=== PATIENT | male | born 1970 | race Caucasian/White ===

== ENCOUNTER → 2018-03-27 07:50 | Outpatient (CLI) | payer BC, SELFPAY ==
[2018-03-27 08:38] LABS: Hemoglobin A1C 9.1 % (0.0-7.0)
[2018-03-27 08:51] LABS: Chol/HDL Ratio 4.4 (1-3.5); Cholesterol 158 mg/dL (140-200); HDL Cholesterol 36 mg/dL (27-67); LDL Cholesterol 77 mg/dL (0-130); Triglycerides 223 mg/dL (30-200); VLDL Cholesterol 45 mg/dL (0-40)
== END ==
PROVIDERS: PCP Physician Assistant; Visit Provider Physician Assistant
DX: E11.9 Type 2 diabetes mellitus without complications (principal); E78.89 Other lipoprotein metabolism disorders
CPT/HCPCS: 36415; 80061; 83036

== ENCOUNTER → 2020-04-08 08:36 | Outpatient (CLI) | payer BC, SELFPAY ==
[2020-04-08 09:54] LABS: Chloride 105 mmol/L (98-107); Sodium 138 mmol/L (136-145)
[2020-04-08 09:55] LABS: Potassium 4.6 mmoL/L (3.5-5.1)
[2020-04-08 09:57] LABS: Alanine Aminotransferase 37 U/L (12-78); Albumin Level 4.6 g/dl (3.5-5.0); Alkaline Phosphatase 78 U/L (38-126); Anion Gap 13.6 mEq/L (5-15); Aspartate Amino Transferase 40 U/L (17-59); Bilirubin,Total 0.6 mg/dl (0.2-1.3); Blood Urea Nitrogen 18 mg/dl (9-20); Carbon Dioxide 24 mmol/L (22.0-30.0); Cholesterol 182 mg/dl (140-200); Estimated Glomerular Filt Rate 90 ml/min (>60); GFR (African American) 109 ML/MIN (>60); Triglycerides 198 mg/dl (30-150); VLDL Cholesterol 40 mg/dL (0-40)
[2020-04-08 09:58] LABS: Albumin/Globulin Ratio 1.8 (1.1-1.8); Calcium 9.2 mg/dl (8.4-10.2); Chol/HDL Ratio 4.4 (1-3.5); Globulin 2.6 g/dL (1.3-3.2); Glucose 129 mg/dl (74-100); HDL Cholesterol 41 mg/dl (40-60); Total Protein,Serum 7.2 g/dl (6.3-8.2)
[2020-04-08 10:09] LABS: Direct LDL Cholesterol 107.53 mg/dL (100-129)
[2020-04-08 10:17] LABS: Hemoglobin A1C 6.5 % (4.0-6.0)
== END ==
PROVIDERS: Visit Provider Family Medicine
DX: I10 Essential (primary) hypertension (principal); E11.9 Type 2 diabetes mellitus without complications
CPT/HCPCS: 36415; 80053; 80061; 83036

== ENCOUNTER → 2021-04-14 09:22 | Outpatient (CLI) | payer BC, SELFPAY ==
[2021-04-14 10:59] LABS: Alanine Aminotransferase 39 U/L (12-78); Albumin Level 4.6 g/dl (3.5-5.0); Albumin/Globulin Ratio 1.7 (1.1-1.8); Alkaline Phosphatase 75 U/L (38-126); Anion Gap 12.7 mEq/L (5-15); Aspartate Amino Transferase 33 U/L (17-59); Bilirubin,Total 0.7 mg/dl (0.2-1.3); Blood Urea Nitrogen 17 mg/dl (9-20); Calcium 9.1 mg/dl (8.4-10.2); Carbon Dioxide 22 mmol/L (22.0-30.0); Chloride 106 mmol/L (98-107); Chol/HDL Ratio 4.1 (1-3.5); Cholesterol 219 mg/dl (140-200); Estimated Glomerular Filt Rate 103 ml/min (>60); GFR (African American) 124 ML/MIN (>60); Globulin 2.7 g/dL (1.3-3.2); Glucose 146 mg/dl (74-100); HDL Cholesterol 54 mg/dl (40-60); Potassium 4.7 mmoL/L (3.5-5.1); Sodium 136 mmol/L (136-145); Total Protein,Serum 7.3 g/dl (6.3-8.2); Triglycerides 123 mg/dl (30-150); VLDL Cholesterol 25 mg/dL (0-40)
[2021-04-14 11:10] LABS: Direct LDL Cholesterol 133.29 mg/dL (100-129)
[2021-04-14 11:29] LABS: Prostate Specific Ag Screen 0.5 ng/ml (0.0-4.0)
[2021-04-14 12:31] LABS: Hemoglobin A1C 6.1 % (4.0-6.0)
== END ==
PROVIDERS: Visit Provider Family Medicine
DX: E11.9 Type 2 diabetes mellitus without complications (principal); I10 Essential (primary) hypertension; B35.6 Tinea cruris; Z12.5 Encounter for screening for malignant neoplasm of prostate; Z79.899 Other long term (current) drug therapy; Z79.84 Long term (current) use of oral hypoglycemic drugs
CPT/HCPCS: 36415; 80053; 80061; 83036; G0103

== ENCOUNTER → 2021-11-05 08:45 | Outpatient (CLI) | payer BC, SELFPAY ==
[2021-11-05 09:27] LABS: Hemoglobin A1C 6.8 % (4.0-6.0)
[2021-11-05 09:38] LABS: Chloride 107 mmol/L (98-107); Potassium 4.5 mmoL/L (3.5-5.1); Sodium 140 mmol/L (136-145)
[2021-11-05 09:40] LABS: Alanine Aminotransferase 45 U/L (12-78); Alkaline Phosphatase 71 U/L (38-126); Aspartate Amino Transferase 47 U/L (17-59); Bilirubin,Total 0.6 mg/dl (0.2-1.3); Blood Urea Nitrogen 13 mg/dl (9-20); Estimated Glomerular Filt Rate 102 ml/min (>60); GFR (African American) 124 ML/MIN (>60)
[2021-11-05 09:41] LABS: Albumin Level 4.5 g/dl (3.5-5.0); Albumin/Globulin Ratio 1.8 (1.1-1.8); Anion Gap 9.5 mEq/L (5-15); Calcium 9.4 mg/dl (8.4-10.2); Carbon Dioxide 28 mmol/L (22.0-30.0); Chol/HDL Ratio 4.1 (1-3.5); Cholesterol 190 mg/dl (140-200); Globulin 2.5 g/dL (1.3-3.2); Glucose 169 mg/dl (74-100); HDL Cholesterol 46 mg/dl (40-60); Triglycerides 173 mg/dl (30-150); VLDL Cholesterol 35 mg/dL (0-40)
[2021-11-05 09:52] LABS: Direct LDL Cholesterol 117.25 mg/dL (100-129)
== END ==
PROVIDERS: PCP Family Medicine; Visit Provider Family Medicine
DX: E11.9 Type 2 diabetes mellitus without complications (principal); E78.5 Hyperlipidemia, unspecified; I10 Essential (primary) hypertension; Z12.5 Encounter for screening for malignant neoplasm of prostate
CPT/HCPCS: 36415; 80053; 80061; 82043; 83036

== ENCOUNTER → 2022-11-23 08:23 | Outpatient (CLI) | payer BC, SELFPAY ==
[2022-11-23 09:35] LABS: Hemoglobin A1C 7.2 % (4.0-6.0)
[2022-11-23 09:40] LABS: Alanine Aminotransferase 35 U/L (12-78); Albumin Level 4.2 g/dl (3.5-5.0); Albumin/Globulin Ratio 1.7 (1.1-1.8); Alkaline Phosphatase 81 U/L (38-126); Anion Gap 13.5 mEq/L (5-15); Aspartate Amino Transferase 32 U/L (17-59); Bilirubin,Total 0.5 mg/dl (0.2-1.3); Blood Urea Nitrogen 15 mg/dl (9-20); Calcium 8.7 mg/dl (8.4-10.2); Carbon Dioxide 26 mmol/L (22.0-30.0); Chloride 104 mmol/L (98-107); Chol/HDL Ratio 4.4 (1-3.5); Cholesterol 190 mg/dl (140-200); Estimated Glomerular Filt Rate 89 ml/min (>60); GFR (African American) 108 ML/MIN (>60); Globulin 2.5 g/dL (1.3-3.2); Glucose 138 mg/dl (74-100); HDL Cholesterol 43 mg/dl (40-60); Potassium 4.5 mmoL/L (3.5-5.1); Sodium 139 mmol/L (136-145); Total Protein,Serum 6.7 g/dl (6.3-8.2); Triglycerides 164 mg/dl (30-150); VLDL Cholesterol 33 mg/dL (0-40)
[2022-11-23 09:50] LABS: Direct LDL Cholesterol 104.86 mg/dL (100-129)
== END ==
PROVIDERS: PCP Physician Assistant; Visit Provider Physician Assistant
DX: I10 Essential (primary) hypertension (principal); E11.9 Type 2 diabetes mellitus without complications; Z13.220 Encounter for screening for lipoid disorders
CPT/HCPCS: 36415; 80053; 80061; 83036

== ENCOUNTER → 2022-12-20 15:48 | Outpatient (CLI) | payer BC, SELFPAY ==
--- NOTE | 2022-12-20 | CA_ITS ---
FINAL REPORT TECHNIQUE: Ultrasound images of the deep venous system were obtained from the left groin to the calf veins. CLINICAL HISTORY: Patient has swollen, red left lower extremity. Patient denies trauma. States he has a history of cellulitis. HLD, HTN, DM, obesity. COMPARISON: None FINDINGS: The deep venous system is normally compressible. Normal flow is identified. IMPRESSION: No evidence of left lower extremity DVT. Reviewed, Interpreted and Dictated by Guido Graham III, MD Transcribed by Teena Montes De Oca Authenticated and [facility]
== END ==
LOC: RT 15:49
PROVIDERS: PCP Physician Assistant; Visit Provider Physician Assistant
DX: R60.0 Localized edema (principal)
CPT/HCPCS: 93971

== ENCOUNTER 2024-05-16 12:05 | Outpatient (CLI) | payer BC, SELFPAY ==
[2024-05-16 13:04] LABS: Albumin Level 4.2 g/dl (3.5-5.0); Chloride 107 mmol/L (98-107); Sodium 138 mmol/L (136-145)
[2024-05-16 13:05] LABS: Potassium 4.3 mmoL/L (3.5-5.1)
[2024-05-16 13:07] LABS: Alanine Aminotransferase 34 U/L (12-78); Albumin/Globulin Ratio 1.8 (1.1-1.8); Alkaline Phosphatase 84 U/L (38-126); Anion Gap 11.3 mEq/L (5-15); Aspartate Amino Transferase 32 U/L (17-59); Bilirubin,Total 0.9 mg/dl (0.2-1.3); Blood Urea Nitrogen 15 mg/dl (9-20); Carbon Dioxide 24 mmol/L (22.0-30.0); Cholesterol 183 mg/dl (140-200); Estimated Glomerular Filt Rate 89 ml/min (>60); GFR (African American) 107 ML/MIN (>60); Globulin 2.4 g/dL (1.3-3.2); Total Protein,Serum 6.6 g/dl (6.3-8.2); Triglycerides 125 mg/dl (30-150); VLDL Cholesterol 25 mg/dL (0-40)
[2024-05-16 13:08] LABS: Calcium 9.2 mg/dl (8.4-10.2); Chol/HDL Ratio 4.1 (1-3.5); Glucose 124 mg/dl (74-100); HDL Cholesterol 45 mg/dl (40-60)
[2024-05-16 13:19] LABS: Direct LDL Cholesterol 109.68 mg/dL (100-129)
[2024-05-16 13:37] LABS: Hemoglobin A1C 6.7 % (4.0-6.0)
== END 2024-05-16 23:59 | disposition home or self-care (01) ==
LOC: LAB 12:06
PROVIDERS: PCP Physician Assistant; Visit Provider Family Medicine
DX: E78.5 Hyperlipidemia, unspecified (principal); I10 Essential (primary) hypertension; E11.9 Type 2 diabetes mellitus without complications
CPT/HCPCS: 36415; 80053; 80061; 83036

== ENCOUNTER 2024-12-25 09:37 | Outpatient (CLI) | payer BC, SELFPAY ==
--- OUTSIDE RECORDS SUMMARY | 2023-08-15 11:15 | XMS_ITS ---
Author Organization [facility] Address [address] [facility] [address] [place], [place] [id number] Care Team Providers Care Straddle Bug Operator Name Role Phone Jay Jones Primary Care Provider KayodeRosalia lizarraga Rajendra [phone] Allergies Allergen (clinical drug ingredient) Drug/Non Drug Allergy documented on EMR Reaction Allergy Type Onset Date Status metformin metFORMIN GI upset Drug Allergy Active Penicillin rash Drug Allergy Active terbinafine Terbinafine rash Drug Allergy Act manish Results Component Value Reference Range Notes Glycohemoglobin A1c (in hous e) Reviewed date:08/18/2023 08:56:10 AM Interpretation:A1C 7.5% Performing Lab: Notes/Report: A1C 7.5% glycohemoglobin 7.5% 5 - 6.5 % P-Comprehensive Metabolic Pa tyron (CMP) Reviewed date:08/18/2023 08:56:10 AM Interpretation:Glu 261 Performing Lab: Notes/Report: Test performed by [facility] , [address], [place] [address] Sameer Mtz MD, Social Secretary CLIA: [id number] Sodium 138 135-145 mEq/L Potassium 4.1 3.5-5.3 mEq/L Chloride 104 97-108 mEq/L CO2 24 22-32 mEq/L Glucose 261 65-99 mg/dL BUN 16 6-20 mg/dL Creatinine 1.05 0.70-1.30 mg/dL Calcium 9.0 8.6-10.4 mg/dL eGFR by Creatinine 85 >59 mL/min/1.73m2 Protein 6.8 6.0-8.3 g/dL Albumin 4.5 3.5-5.3 g/dL Alkaline Phosphatase 92 40-129 IU/L ALT (SGPT) 29 <5-55 IU/L AST (SGOT) 17 <5-46 IU/L Bilirubin, Total 0.5 <0.2-1.2 mg/dL A/G Ratio 2.0 1.1-2.5 mg/dL P-Lipid Panel Reviewed date:08/18/2023 08:56:10 AM Interpretation:Trigs 304, Non-Hdl 150 Performing Lab: Notes/Report: Test performed by [facility] , [address], [place] [address] Sameer Mtz MD, Social Secretary CLIA: [id number] Cholesterol 194 <200 mg/dL Triglycerides 304 <150 mg/dL HDL Cholesterol 44 >39 mg/dL Cholesterol / HDL Ratio 4.41 0.00-4.99 Ratio Non-HDL Cholesterol 150 <130 mg/dL LDL Cholesterol (Calculation) 89 <130 mg/dL LDL Cholesterol Levels* Less than 100 mg/dL Optimal 100 to 129 mg/dL Near Optimal/ Above Optimal 130 to 159 mg/dL Borderline High 160 to 189 mg/dL High 190 mg/dL and above Very High * Categories as recommended by the 2004 ATPIII guidelines LDL/HDL Ratio 2.0 <3.3 Ratio LDL Cholesterol Patient History Test Date: 08/15/2023 LDL Results: 89 Units: mg/dL % Change: - P-PSA Reviewed date:08/18/2023 08:56:10 AM Interpretation: Performing Lab: Notes/Report: Test performed by [facility] [address] [place] [address] [address], [place] [address] Sameer Mtz MD, Social Secretary CLIA: [id number] PSA 0.39 <4.00 ng/mL Please note this is an ultrasensitive PSA assay with a lower limit of detection of 0.014 ng/mL. This test is performed by the Jose ECLIA methodology. Values obtained with different assay methods or kits cannot be directly compared. P-Microalbumin/Creatinine, R andom Urine Sample Reviewed date:08/18/2023 08:56:10 AM Interpretation: Performing Lab: Notes/Report: Test performed by [facility] [address] [place] [address] [address] [id number] Sameer Mtz MD, Social Secretary CLIA: [id number] Albumin/Creatinine Ratio, Urine 15 0-30 ug/m g Microalbumin, Urine, Random 1.3 Creatinine, Urine 84.7 REASON FOR VISIT CHECKUP Medications Medication SIG (Take, Route, Frequency, Duration) Notes Start Date End Date Status Trulicity 3 MG/0.5ML 3 mg Subcutaneous o nce a week 01/14/2023 Active Trulicity 0.75 MG/0.5ML 0.75 mg Subcutan eous once a week 08/15/2023 Active Dicyclomine HCl 20 MG 1 tab(s) orally 4 times a day prn; Duration: 30 days Active Indomethacin 25 MG 1 capsule with food or milk Orally Three times a day 01/07/2023 Not-Taking Cyclobenzaprine HCl 10 MG 1 tab(s) Orall y At Bed Time 01/07/2023 Not-Taking Clindamycin HCl 300 MG 1 capsule Orally every 8 hrs; Duration: 10 day(s) 12/20/2022 Not-Taking amLODIPine Besy-Benazepril HCl 5-20 MG 1 cap(s) orally once a day; Duration: 30 day(s) Active Albuterol Sulfate HFA 108 (90 Base) MCG/ACT 2 puff(s) inhaled every 6 hours, prn 06/06/2022 Active Farxiga 10 MG 1 tab(s) orally once a day; Duration: 30 day(s) Active Clotrimazole 1 % 1 application Externally Twice a day 08/15/2023 Active Vital Signs Blood pressure systolic 128 mm Hg 08/15/19 24 Blood pressure diastolic 82 mm Hg 024 Heart Rate 93 /min 08/15/2023 Height 73.50 in 08/15/2023 Weight 307 lbs 08/15/2023 BMI 39.95 kg/m2 08/15/2023 Encounters Encounter Location Date Provider Diagnosis [facility] [address] [facility] [address] [place] [id number] 08/15/2023 Rosalia Headleyelham Essential hypertensi on I10 ; Type 2 diabetes mellitus without complication, without long-term current use of insulin E11.9 ; Gastroesophageal reflux disease without esophagitis K21.9 ; Hyperlipidemia, unspecified hyperlipidemia type E78.5 ; Screening PSA (prostate specific antigen) Z12.5 and Tinea cruris B35.6 Assessments Encounter Date Diagnosis (ICD Code) Assessment Notes Treatment Notes Treatment Clinical Notes Section Notes 08/15/2023 Essential hypertension (ICD-10 - I10) 08/15/2023 Type 2 diabetes mellitus without complication, without long-term current use of insulin (ICD-10 - E11.9) Patient has been out of his trulicity because the coupons have been unavailable and it was going to cost $150. He will have to start back on the lower dose once the coupons are available. 08/15/2023 Gastroesophageal reflux disease without esophagitis (ICD-10 - K21.9) 08/15/2023 Hyperlipidemia, unspecified hyperlipidemia type (ICD-10 - E78.5) 08/15/2023 Screening PSA (prostate specific antigen) (ICD-10 - Z12.5) 08/15/2023 Tinea cruris (ICD-10 - B35.6) Patient normally takes pills but will try sending a cream this time that he can apply when needed. Plan Of Treatment Medication Medication Name Sig Start Date Stop Date Notes Trulicity 0.75 MG/0.5ML 0.75 mg Subcutan eous once a week 08/15/2023 amLODIPine Besy-Benazepril HCl 5-20 MG 1 cap(s) orally once a day; Duration: 30 day(s) Farxiga 10 MG 1 tab(s) orally once a day; Duration: 30 day(s) Clotrimazole 1 % 1 application Community Health Coordinator ally Twice a day 08/15/2023 Treatment Notes Assessment Notes Type 2 diabetes mellitus wit hout complication, without long-term current use of insulin Patient has been out of his trulicity because the coupons have been unavailable and it was going to cost $150. He will have to start back on the lower dose once the coupons are available. Tinea cruris Patient normally gilbert es pills but will try sending a cream this time that he can apply when needed. Next Appt Details Follow Up: via phone to repo rt test results, Reason: Progress Notes * Brandon ARSHAD JR B:1970 (54 yo M)Acc No.[id number]:08/15/2023 Progress Notes Patient: Michaela SHRUTHI MOSQUERA Brandon Gauthier Provider: ARNEL Hwang :1970 A ge:53 Y S ex:Male Date:08/15/2023 Address:[address] [place] [address], [id number] Pcp:Jay Jones Subjective: * Chief Complaints: * 1 . CHECKUP. * HPI: E ndocrinology: 53 year old male presents with c/o Maintenance p t is here for a f/u on regular maintenance on DM2. C ardiology: c/o Hyperlipidemia p t is here for a f/u, pt h as not fasted today. * ROS: D ERMATOLOGY: no R danuta. n o H kamlesh. G ASTROENTEROLOGY: no N ausea. n o V omiting. n o D iarrhea.? * Medical History: T ype 2 diabetes, Hypertension. * Surgical History: a ppendectomy , tonsillectomy , adenoidectomy , vasectomy , Gallbladder , Colonoscopy . * Hospitalization/Major Diagno stic Procedure: T yphoid Fever- [facility] 1979, Breathing Problems- [facility] 1973. * Family History: F ather: alive. M other: alive. 1 brother(s) - healthy. 2 daughter(s) - healthy. .? * Social History: C URRENT TOBACCO USE S moking Status: P atient does smoke, F ormer Smoker: Y es, Q uit smokin 014, S moking pack year history: 1 . C affeine: yes, frequency: 6-8 cups a day. Exercise: no. Marital Status: . Alcohol: Yes, occasional. Sexually active: yes. * Medications: T aking Albuterol Sulfate HFA 108 (90 Base) MCG/ACT Aerosol Solution 2 puff(s) inhaled every 6 hours, prn , Taking amLODIPine Besy-Benazepril HCl 5-20 MG Capsule 1 cap(s) orally once a day , Taking Dicyclomine HCl 20 MG Tablet 1 tab(s) orally 4 times a day prn , Taking Farxiga 10 MG Tablet 1 tab(s) orally once a day , Taking Trulicity 3 MG/0.5ML Solution Pen-injector 3 mg Subcutaneous once a week , Not-Taking Clindamycin HCl 300 MG Capsule 1 capsule Orally every 8 hrs , Not-Taking Cyclobenzaprine HCl 10 MG Tablet 1 tab(s) Orally At Bed Time , Not-Taking Indomethacin 25 MG Capsule 1 capsule with food or milk Orally Three times a day , Medication List reviewed and reconciled with the patient * Allergies: P enicillin: rash, Terbinafine: rash, metFORMIN: GI upset - Side Effects. Objective: * Vitals: W t:307, Temp:98.2, BP:128/82, HR:93, Nurse: , Ht: 73.50, BMI:39.95. * Examination: G eneral Examination: General Appearance: N AD. H EENT: u nremarkable.?Oral cavity: n o lesions, mucosa moist and WNL, no erythema. N regla: s upple, no lymphadenopathy. C hest: n ormal shape and expansion. H eart: R SR. L ungs: c lear to auscultation. A bdomen: bowel sounds present, soft and nontender. N eurologic Exam: I ntact, gait normal. S kin: n ormal, no rash. P eripheral pulses: n ormal (2+) bilaterally. E xtremities: 1+ leg edema bilaterally. Assessment: * Assessment: 1. E ssential hypertension - I10 (Primary) 2 . T ype 2 diabetes mellitus without complication, without long-term current use of insulin - E11.9 3 . G astroesophageal reflux disease without esophagitis - K21.9 4 . H yperlipidemia, unspecified hyperlipidemia type - E78.5 5 . S creening PSA (prostate specific antigen) - Z12.5 6 . T inea cruris - B35.6 Plan: * Treatment: 2. T ype 2 diabetes mellitus without complication, without long-term current use of insulin Refill Farxiga Tablet, 10 MG, 1 tab(s), orally, once a day, 30 day(s), 30 Tablet, Refills 11; S tart Trulicity Solution Pen-injector, 0.75 MG/0.5ML, 0.75 mg, Subcutaneous, once a week, 4, Refills 0. L AB: P-Comprehensive Metabolic Panel (CMP) (Collection Date & Time - 08/15/2023 03:15 PM) G kary 261 Value Reference Range A /G Ratio 2.0 1.1-2.5 - mg/dL * A lbumin 4.5 3.5-5.3 - g/dL * A lkaline Phosphatase 92 40-129 - IU/L * A LT (SGPT) 29 <5-55 - IU/L * A ST (SGOT) 17 <5-46 - IU/L * B ilirubin, Total 0.5 <0.2-1.2 - mg/dL * B UN 16 6-20 - mg/dL * C alcium 9.0 8.6-10.4 - mg/dL * C hloride 104 97-108 - mEq/L * C O2 24 22-32 - mEq/L * C reatinine 1.05 0.70-1.30 - mg/dL * G lucose 261 H 65-99 - mg/dL * P otassium 4.1 3.5-5.3 - mEq/L * S odium 138 135-145 - mEq/L * P rotein 6.8 6.0-8.3 - g/dL * e GFR by Creatinine 85 >59 - mL/min/1.73m2 * Mery Fowler 08/18/2023 8: 56:10 AM >See phone encounter ?LAB: P-Microalbumin/Creatinine, Random Urine Sample (Collection Date & Time - 08/15/2023 03:15 PM)* Value Reference Range A lbumin/Creatinine Ratio, Urine 15 0-30 - ug /mg * C reatinine, Urine 84.7 - mg/dL * M icroalbumin, Urine, Random 1.3 - mg/dL * PLEASE COMPLETE ALL LABS* Mery Fowler 08/18/2023 8:56:10 AM >See phone encounter ?LAB: Glycohemoglobin A1c (in house) (Collection Date & Time - 08/15/2023)? A1C 7.5%* Value Reference Range g lycohemoglobin 7.5% 5 - 6.5 % * Mery Fowler 08/15/2023 4:3 5:49 PM > Mery Fowler 08/18/2023 8:56:10 AM >See phone encounter Notes: Patient has been out of his trulicity because the coupons have been unavailable and it was going to cost $150. He will have to start back on the lower dose once the coupons are available.??3.?Hyperlipidemia, unspecified hyperlipidemia type?LAB: P-Lipid Panel (Collection Date & Time - 08/15/2023 03:15 PM)?Trigs 304, Non-Hdl 150* Value Reference Range C holesterol / HDL Ratio 4.41 0.00-4.99 - Ratio * C holesterol 194 <200 - mg/dL * H DL Cholesterol 44 >39 - mg/dL * L DL Cholesterol (Calculation) 89 <130 - mg/d L * L DL/HDL Ratio 2.0 <3.3 - Ratio * N on-HDL Cholesterol 150 H <130 - mg/dL * T riglycerides 304 H <150 - mg/dL * Mery Fowler 08/18/2023 8: 56:10 AM >See phone encounter 4.?Screening PSA (prostate specific antigen)?LAB: P-PSA (Collection Date & Time - 08/15/2023 03:15 PM)* Value Reference Range P SA 0.39 <4.00 - ng/mL * Mery Fowler 08/18/2023 8: 56:10 AM >See phone encounter 5.?Tinea cruris? Start Clotrimazole Cream, 1 %, 1 application, Externally, Twice a day, 45 grams, Refills 2.? Notes: Patient normally takes pills but will try sending a cream this time that he can apply when needed.?? * Procedure Codes: 8 3036 GLYCATED HEMOGLOBIN TEST, Modifiers: QW , 77645 VENIPUNCT, ROUTINE*, 50192 SPECIMEN HANDLING * Follow Up: v ia phone to report test results * Images: Billing Information: * Visit Code: 49832 Office Visit, Est Pt., Level 4. * Procedure Codes: 33283 GLYCATED HEMOGLOBIN TEST. Modifiers: QW 53337 VENIPUNCT, ROUTINE*. 84959 SPECIMEN HANDLING. * Electronic signature of ARNEL Murillo on 12/25/2024 at 09:40 AM EDT Sign off status: Pending * Provider: ARNEL Hwang Date: 0 08/15/2023 Generated for Printi ng/Faxing/eTransmitting on: 0 12/25/2024 09:40 AM EDT History and Physical Notes * HPI (History of Present Illness) Category Sub-Category Detail Notes Category Not es Endocrinology Maintenance pt is here for a f/u on regular maintenance on DM2 Cardiology Hyperlipidemia pt is here for a f/u, pt has not fasted today Examination Category Sub-Category Detail Notes Category Not es General Examination HEENT: unremarkable Heart: RSR Lungs: clear to auscultatio n Abdomen: bowel sounds present , soft and nontender Extremities: 1+ leg edema bilater ally General Appearance: NAD Skin: normal, no rash Neurologic Exam: Intact, gait normal Neck: supple, no lymphaden opathy Oral cavity: no lesions, mucosa m oist and WNL, no erythema Peripheral pulses: normal (2+) bilatera lly Chest: normal shape and exp ansion
--- OUTSIDE RECORDS SUMMARY | 2024-04-13 12:15 | XMS_ITS ---
Author Organization [facility] Address [address] [place] [id number] Care Team Providers Care Esl Teacher Name Role Phone Jay Jones Primary Care Provider Allergies Allergen (clinical drug ingredient) Drug/Non Drug Allergy documented on EMR Reaction Allergy Type Onset Date Status metformin metFORMIN GI upset Drug Allergy Active Penicillin rash Drug Allergy Active terbinafine Terbinafine rash Drug Allergy Act manish Results Component Value Reference Range Notes CBC Fingerstick (in house) Reviewed date:04/13/2024 04:51:43 PM Interpretation: Performing Lab: Notes/Report: wbc 9.6 3.5 - 10 lym 26.3 15 - 50 mid 6.2 2 - 15 gran 67.5 35 - 80 rbc 5.32 3.5 - 5.5 hgb 16.6 11.5 - 16.5 hct 48.6 35 - 55 mcv 91.3 75 - 100 mch 31.1 25 - 35 mchc 34.1 31 - 38 plat 168 100 - 400 H-Lipid Panel Reviewed date:05/18/2024 08:38:51 AM Interpretation:LDL 109 Performing Lab: Notes/Report: Patient Fasting? Y TRIG 125 30-150 mg/dl CHOL 183 140-200 mg/dl DLDL 109.68 100-129 mg/dL VLDL 25 0-40 mg/dL HDL 45 40-60 mg/dl CHLHDL 4.1 1-3.5 H-CMP Reviewed date:05/18/2024 08:38:51 AM Interpretation:gluc 124 Performing Lab: Notes/Report: NA 138 136-145 mmol/L K 4.3 3.5-5.1 mmoL/L CL 107 98-107 mmol/L CO2 24 22.0-30.0 mmol/L GAP 11.3 5-15 mEq/L BUN 15 9-20 mg/dl CREATT 0.90 0.66-1.25 mg/dl GFRAA 107 >60 ML/MIN EGFR 89 >60 ml/min GLU 124 74-100 mg/dl CA 9.2 8.4-10.2 mg/dl BILIT 0.9 0.2-1.3 mg/dl AST 32 17-59 U/L ALT 34 12-78 U/L TP 6.6 6.3-8.2 g/dl ALB 4.2 3.5-5.0 g/dl GLOB 2.4 1.3-3.2 g/dL AGRATIO 1.8 1.1-1.8 ALP 84 38-126 U/L H-Glycohemoglobin A1C Reviewed date:05/18/2024 08:38:51 AM Interpretation:6.7 Performing Lab: Notes/Report: HGBA1C 6.7 4.0-6.0 % < 6% Non-Diabetic Level < 7% Controlled Diabetic Level > 8% Poorly Controlled Diabetic Level REASON FOR VISIT cold, cough Medications Medication SIG (Take, Route, Frequency, Duration) Notes Start Date End Date Status Dicyclomine HCl 20 MG 1 tab(s) orally 4 times a day prn; Duration: 30 days Active Albuterol Sulfate HFA 108 (90 Base) MCG/ACT 2 puff(s) inhaled every 6 hours, prn 06/06/2022 Active Glimepiride 4 MG 1 tablet with breakfast or the first main meal of the day Orally Once a day; Duration: 30 day(s) 08/18/2023 Not-Taking Clotrimazole 1 % 1 application Externally Twice a day 08/15/2023 Not-Taking Trulicity 3 MG/0.5ML as directed Subcutaneous once a week 12/12/2023 Active methylPREDNISolone 4 MG as directed Orally 024 Active Indomethacin 25 MG 1 capsule with food or milk Orally Three times a day 01/07/2023 Not-Taking Doxycycline Hyclate 100 MG 1 capsule Ora lly Two times a day; Duration: 10 day(s) 04/13/2024 Active Farxiga 10 MG 1 tab(s) orally once a day Active amLODIPine Besy-Benazepril HCl 5-20 MG 1 cap(s) orally once a day Active Clindamycin HCl 300 MG 1 capsule Orally every 8 hrs; Duration: 10 day(s) 12/20/2022 Not-Taking Cyclobenzaprine HCl 10 MG 1 tab(s) Orall y At Bed Time 01/07/2023 Not-Taking Vital Signs Blood pressure systolic 132 mm Hg 04/13/20 24 Blood pressure diastolic 84 mm Hg 024 Heart Rate 75 /min 04/13/2024 Height 73.50 in 04/13/2024 Weight 302.8 lbs 04/13/2024 BMI 39.40 kg/m2 04/13/2024 Encounters Encounter Location Date Provider Diagnosis [facility] [place] [address] [facility] [address] [place], [place] [id number] 04/13/2024 Jay Jones Acute bronchitis J20 .9 ; Essential hypertension I10 and Type 2 diabetes mellitus without complication, without long-term current use of insulin E11.9 Assessments Encounter Date Diagnosis (ICD Code) Assessment Notes Treatment Notes Treatment Clinical Notes Section Notes 04/13/2024 Acute bronchitis (ICD-10 - J20.9) 04/13/2024 Essential hypertension (ICD-10 - I10) 04/13/2024 Type 2 diabetes mellitus without complication, without long-term current use of insulin (ICD-10 - E11.9) Plan Of Treatment Medication Medication Name Sig Start Date Stop Date Notes Trulicity 3 MG/0.5ML as directed Subcuta neous once a week 12/12/2023 methylPREDNISolone 4 MG as directed Orally 04/13/2024 Doxycycline Hyclate 100 MG 1 capsule Ora lly Two times a day; Duration: 10 day(s) 04/13/2024 Farxiga 10 MG 1 tab(s) orally once a day amLODIPine Besy-Benazepril H Cl 5-20 MG 1 cap(s) orally once a day Next Appt Details Follow Up: prn, Reason: Progress Notes * Brandon ARSHAD JR B:1970 (54 yo M)Acc No.[id number]:04/13/2024 Progress Notes Patient: Brandon URIOSTEGUI JR Provider: Jay Jones M.D. :1970 A ge:53 Y S ex:Male Date:04/13/2024 Address:[place], [id number] Subjective: * Chief Complaints: * 1 . Cold, cough. * HPI: E NT/respiratory: 53 year old male presents with c/o cough P t presents today with c/o cough and chest congestion. Pt sts that he has been using his inhaler and using nebulizer treatments at home. Pt sts that he has had a cough for about two weeks. Pt sts that he has been treating himself w/ OTC medications but is not improving. H PI: He is also here to follow-up on his diabetes and hypertension. Blood pressure has been well-controlled. He feels like his blood sugars have been doing okay but admits not checking regularly. He has been compliant with his medication and was hoping to lose more weight with the Trulicity. * ROS: D ERMATOLOGY: no R danuta. n o H kamlesh. G ASTROENTEROLOGY: no N ausea. n o V omiting. n o D iarrhea.? U ROLOGY: no D ifficulty urinating. n o B lood in urine. * Medical History: T ype 2 diabetes, Hypertension. * Surgical History: a ppendectomy , tonsillectomy , adenoidectomy , vasectomy , Gallbladder , Colonoscopy . * Hospitalization/Major Diagno stic Procedure: T yphoid Fever- [facility] 1979, Breathing Problems- [facility] 1973. * Family History: F ather: [...] inhaled every 6 hours, prn , Taking Dicyclomine HCl 20 MG Tablet 1 tab(s) orally 4 times a day prn , Taking amLODIPine Besy-Benazepril HCl 5-20 MG Capsule 1 cap(s) orally once a day , Taking Farxiga 10 MG Tablet 1 tab(s) orally once a day , Taking Trulicity 3 MG/0.5ML Solution Pen-injector as directed Subcutaneous once a week , Not-Taking Clindamycin HCl 300 MG Capsule 1 capsule Orally every 8 hrs , Not-Taking Cyclobenzaprine HCl 10 MG Tablet 1 tab(s) Orally At Bed Time , Not-Taking Indomethacin 25 MG Capsule 1 capsule with food or milk Orally Three times a day , Not-Taking Clotrimazole 1 % Cream 1 application Externally Twice a day , Not- Taking Glimepiride 4 MG Tablet 1 tablet with breakfast or the first main meal of the day Orally Once a day , Medication List reviewed and reconciled with the patient * Allergies: P enicillin: rash, Terbinafine: rash, metFORMIN: GI upset - Side Effects. Objective: * Vitals: W t:302.8, Temp:98.5, BP:132/84, HR:75, O2 Sat:96% on RA, Nurse:ERWIN, Ht: 73.50, BMI:39.40. * Examination: E NT/Respiratory: General Appearance: N AD. E yes: P ERRLA, sclera clear. E ars: a uditory canals normal bilaterally, TM's WNL. N ose : mild congestion. O ral cavity : n o erythema or exudate seen on pharynx. N regla : n o cervical lymphadenopathy. H eart : R RR, normal S1 S2, no murmurs. L ungs: scattered rhonchi and wheezes. Assessment: * Assessment: 1. A cute bronchitis - J20.9 (Primary) 2 . E ssential hypertension - I10? 3. T ype 2 diabetes mellitus without complication, without long-term current use of insulin - E11.9 Plan: * Treatment: Value Reference Range w bc 9.6 3.5 - 10 * l ym 26.3 15 - 50 * m id 6.2 2 - 15 * g ran 67.5 35 - 80 * r bc 5.32 3.5 - 5.5 * h gb 16.6 11.5 - 16.5 * h ct 48.6 35 - 55 * m cv 91.3 75 - 100 * m ch 31.1 25 - 35 * m chc 34.1 31 - 38 * p lat 168 100 - 400 * Sweetie Ugalde 04/13/2024 4:14 :30 PM > results reviewed w/ pt in office 2.?Essential hypertension? Continue amLODIPine Besy-Benazepril HCl Capsule, 5-20 MG, 1 cap(s), orally, once a day.??3.?Type 2 diabetes mellitus without complication, without long-term current use of insulin? Continue Farxiga Tablet, 10 MG, 1 tab(s), orally, once a day;?Continue Trulicity Solution Pen-injector, 3 MG/0.5ML, as directed, Subcutaneous, once a week.?? * Labs: * L ab: H-Lipid Panel (Collection Date & Time - 05/16/2024 12:13 PM) L DL 109 Value Reference Range T RIG 125 30-150 - mg/dl * C HOL 183 140-200 - mg/dl * D LDL 109.68 100-129 - mg/dL * V LDL 25 0-40 - mg/dL * H DL 45 40-60 - mg/dl * C HLHDL 4.1 H 1-3.5 - * Jay Jones 05/18/2024 8:38:39 AM >See phone encounter ?Lab: H-CMP (Collection Date & Time - 05/16/2024 12:13 PM)?gluc 124* Value Reference Range N A 138 136-145 - mmol/L * K 4.3 3.5-5.1 - mmoL/L * C L 107 98-107 - mmol/L * C O2 24 22.0-30.0 - mmol/L * G AP 11.3 5-15 - mEq/L * B UN 15 9-20 - mg/dl * C REATT 0.90 0.66-1.25 - mg/dl * G FRAA 107 >60 - ML/MIN * E GFR 89 >60 - ml/min * G RIGOBERTO 124 H 74-100 - mg/dl * C A 9.2 8.4-10.2 - mg/dl * B ILIT 0.9 0.2-1.3 - mg/dl * A ST 32 17-59 - U/L * A LT 34 12-78 - U/L * T P 6.6 6.3-8.2 - g/dl * A LB 4.2 3.5-5.0 - g/dl * G LOB 2.4 1.3-3.2 - g/dL * A GRATIO 1.8 1.1-1.8 - * A LP 84 38-126 - U/L * Jay Jones 05/18/2024 8:38:39 AM >See phone encounter ?Lab: H-Glycohemoglobin A1C (Collection Date & Time - 05/16/2024 12:13 PM) ?6.7* Value Reference Range H GBA1C 6.7 H 4.0-6.0 - % * Jay Jones 05/18/2024 8:38:39 AM >See phone encounter * Procedure Codes: 9 [address] [place], [address] CAPILLARY BLOOD DRAW, 35041 CBC WITH AUTO DIFF * Follow Up: p rn * Images: Billing Information: * Visit Code: 82543 Office Visit, Est Pt., Level 4. * Procedure Codes: [address] [place]. [address] CAPILLARY BLOOD DRAW. 89184 CBC WITH AUTO DIFF. * Electronic signature of Jay Jones MD on 12/25/2024 at 09:39 AM EDT Sign off status: Pending * Provider: Jay Jones M.D. Date: 06/13/2023 Generated for Tiesha blackburn/Alka/eTransmitting on: 0 12/25/2024 09:39 AM EDT History and Physical Notes * HPI (History of Present Illness) Category Sub-Category Detail Notes Category Not es ENT/respiratory cough Pt presents toda y with c/o cough and chest congestion. Pt sts that he has been using his inhaler and using nebulizer treatments at home. Pt sts that he has had a cough for about two weeks. Pt sts that he has been treating himself w/ OTC medications but is not improving Examination Category Sub-Category Detail Notes Category Not es ENT/Respiratory Oral cavity : no erythema or exudate s een on pharynx Ears: auditory canals norm al bilaterally, TM's WNL Neck : no cervical lymphade nopathy Heart : RRR, normal S1 S2, n o murmurs Lungs: scattered rhonchi an d wheezes General Appearance: NAD Nose : mild congestion Eyes: PERRLA, sclera clear
--- OUTSIDE RECORDS SUMMARY | 2024-12-21 12:00 | XMS_ITS ---
[facility] Address [address] [place] [phone] Care Team Providers Care Textile Artist Name Role Phone Jay Jones Primary Care Provider [phone] Allergies Allergen (clinical drug ingredient) Drug/Non Drug Allergy documented on EMR Reaction Allergy Type Onset Date Status metformin metFORMIN GI upset Drug Allergy Active Penicillin rash Drug Allergy Active terbinafine Terbinafine rash Drug Allergy Act manish REASON FOR VISIT med check Medications Medication SIG (Take, Route, Frequency, Duration) Notes Start Date End Date Status Griseofulvin Microsize 500 MG 1 tab(s) orally once a day; Duration: 30 day(s) Active Dicyclomine HCl 20 MG 1 tab(s) orally 4 times a day prn; Duration: 30 days Active levoFLOXacin 750 MG 1 tablet Orally Once a day 12/21/2024 Active Albuterol Sulfate HFA 108 (90 Base) MCG/ACT 2 puff(s) inhaled every 6 hours, prn 06/06/2022 Active amLODIPine Besy-Benazepril HCl 5-20 MG 1 capsule orally daily Activ e Farxiga 10 mg 1 tablet orally daily PT NEEDS APPT Active Trulicity 3 MG/0.5ML 0.5 mL Subcutaneous once a week Active Vital Signs Blood pressure systolic 133 mm Hg 12/22/19 25 Blood pressure diastolic 80 mm Hg 025 Heart Rate 79 /min 12/21/2024 Height 73.50 in 12/21/2024 Weight 299.6 lbs 12/21/2024 BMI 38.99 kg/m2 12/21/2024 Encounters Encounter Location Date Provider Diagnosis [facility] [address] [place] [id number] 12/21/2024 Jay Jones Acute bronchitis J20 .9 ; Tinea cruris B35.6 ; Essential hypertension I10 and Type 2 diabetes mellitus without complication, without long-term current use of insulin E11.9 Assessments Encounter Date Diagnosis (ICD Code) Assessment Notes Treatment Notes Treatment Clinical Notes Section Notes 12/21/2024 Acute bronchitis (ICD-10 - J20.9) 12/21/2024 Tinea cruris (ICD-10 - B35.6) 12/21/2024 Essential hypertension (ICD-10 - I10) 12/21/2024 Type 2 diabetes mellitus without complication, without long-term current use of insulin (ICD-10 - E11.9) Plan Of Treatment Medication Medication Name Sig Start Date Stop Date Notes Griseofulvin Microsize 500 MG 1 tab(s) orally once a day; Duration: 30 day(s) levoFLOXacin 750 MG 1 tablet Orally Once a day 12/21/2024 amLODIPine Besy-Benazepril HCl 5-20 MG 1 capsule orally daily Farxiga 10 mg 1 tablet orally daily PT NEEDS APPT Trulicity 3 MG/0.5ML 0.5 mL Subcutaneous once a week Pending Test Test Name Order Date H-Lipid Panel 12/21/2024 H-CMP 12/21/2024 H-Glycohemoglobin A1C 12/21/2024 H-PSA 12/21/2024 Next Appt Details Follow Up: 6 Months, Reason: Progress Notes * Brandon ARSHAD JR B:1970 (54 yo M)Acc No.[id number]:12/21/2024 Progress Notes Patient: Michaela Brandon HAWKINS JR Provider: Jay Jones M.D. :1970 A ge:54 Y S ex:Male Date:12/21/2024 Address:[address] [place], [place] [address], [id number] Subjective: * Chief Complaints: * 1 . Med check. * HPI: E ndocrinology: He comes in for checkup on his diabetes. He is due for labs and refills. He checks his blood sugar occasionally at home and states his fasting readings have been averaging about 150. He admits to frequently missing or being late for his dose of Trulicity. No significant weight loss since last office visit. E NT/respiratory: He presents with 1 week of congestion and cough. c/o cough g reen sputum. c/o nasal congestion. c/o ear pain. c/o Short of Breath. c/o headache. c/o ear stopped up. Denies : Fever. D enies : Chest Pain. D ermatology: He is requesting refill on griseofulvin for his tinea cruris which is flared up with the summer months. * ROS: D ERMATOLOGY: no R danuta. [...] Hospitalization/Major Diagno stic Procedure: T yphoid Fever- [facility] 1979, Breathing Problems- [facility] 1973. * Family History: F ather: alive. [...] 4 times a day prn , Taking Trulicity 3 MG/0.5ML Solution Auto-injector 0.5 mL Subcutaneous once a week , Taking amLODIPine Besy-Benazepril HCl 5-20 MG Capsule 1 capsule orally daily , Taking Farxiga 10 mg Tablet 1 tablet orally daily , Notes to Pharmacist: PT NEEDS APPT, Discontinued Cyclobenzaprine HCl 10 MG Tablet 1 tab(s) Orally At Bed Time , Discontinued Indomethacin 25 MG Capsule 1 capsule with food or milk Orally Three times a day , Discontinued Glimepiride 4 MG Tablet 1 tablet with breakfast or the first main meal of the day Orally Once a day , Medication List reviewed and reconciled with the patient * Allergies: P enicillin: rash, Terbinafine: rash, metFORMIN: GI upset - Side Effects. Objective: * Vitals: W t:299.6, Temp: 98.5, BP: 133/80, HR: 79, O2 Sat: 92% on RA, Nurse: pe, Ht: 73.50, BMI:38.99. * Examination: E NT/Respiratory: General Appearance: N AD. E yes: P ERRLA, sclera clear. E ars: a uditory canals normal bilaterally, TM's WNL. N ose : mild congestion. O ral cavity : n o erythema or exudate seen on pharynx. N regla : n o cervical lymphadenopathy. H eart : R RR, normal S1 S2, no murmurs. L ungs: scattered rhonchi and wheezes. E xtremities : n o edema. Assessment: * Assessment: 1. A cute bronchitis - J20.9 (Primary) 2 . T inea cruris - B35.6 3 . E ssential hypertension - I10 4 . T ype 2 diabetes mellitus without complication, without long-term current use of insulin - E11.9 Plan: * Treatment: 2. T inea cruris Refill Griseofulvin Microsize Tablet, 500 MG, 1 tab(s), orally, once a day, 30 day(s), 30. ? 3. E ssential hypertension Refill amLODIPine Besy-Benazepril HCl Capsule, 5-20 MG, 1 capsule, orally, daily, 90, Refills 1.? 4. T ype 2 diabetes mellitus without complication, without long-term current use of insulin Refill Farxiga Tablet, 10 mg, 1 tablet, orally, daily, 90, Refills 1, Notes to Pharmacist: PT NEEDS APPT; R efill Trulicity Solution Auto-injector, 3 MG/0.5ML, 0.5 mL, Subcutaneous, once a week, 2 ml, Refills 5. * Labs: * L ab: H-Lipid Panel L ab: H-PSA L ab: H-CMP L ab: H-Glycohemoglobin A1C * Follow Up: 6 Months * Images: Billing Information: * Visit Code: 46056 Office Visit, Est Pt., Level 4. * Procedure Codes: * Electronic signature of Jay Jones MD on 12/25/2024 at 09:39 AM EDT Sign off status: Pending * Provider: Jay Jones M.D. Date: 12/21/2024 Generated for Printi ng/Fabentleyg/eTransmitting on: 12/25/2024 09:39 AM EDT History and Physical Notes * HPI (History of Present Illness) Category Sub-Category Detail Notes Category Not es ENT/respiratory ear pain Short of Breath Chest Pain cough green sputum Fever headache nasal congestion ear stopped up Dermatology He is requestin g refill on griseofulvin for his tinea cruris which is flared up with the summer months Endocrinology He comes in fo checkup on his diabetes. He is due for labs and refills. He checks his blood sugar occasionally at home and states his fasting readings have been averaging about 150. He admits to frequently missing or being late for his dose of Trulicity. No significant weight loss since last office visit. Examination Category Sub-Category Detail Notes Category Not es ENT/Respiratory Oral cavity : no erythema or exudate s een on pharynx Ears: auditory canals norm al bilaterally, TM's WNL Neck : no cervical lymphade nopathy Heart : RRR, normal S1 S2, n o murmurs Lungs: scattered rhonchi an d wheezes Extremities : no edema General Appearance: NAD Nose : mild congestion Eyes: PERRLA, sclera clear
--- OUTSIDE RECORDS SUMMARY | 2024-12-25 09:40 | XMS_ITS | Patient Health Record ---
Author Organization [facility] Address [address] [phone] Care Team Providers Care Steam Oven Operator Name Role Phone Jay Jones Primary Care Provider [phone] Allergies Allergen (clinical drug ingredient) Drug/Non Drug [...] Level > 8% Poorly Controlled Diabetic Level Reason For Referral No Information Medications Medication SIG (Take, Route, Frequency, Duration) Notes Start Date End Date Status levoFLOXacin 750 MG 1 tablet Orally Once a day 12/21/2024 Active Griseofulvin Microsize 500 MG 1 tab(s) orally once a day; Duration: 30 day(s) Active Albuterol Sulfate HFA 108 (90 Base) MCG/ACT 2 puff(s) inhaled every 6 hours, prn 06/06/2022 Active amLODIPine Besy-Benazepril HCl 5-20 MG 1 capsule orally daily Activ e Dicyclomine HCl 20 MG 1 tab(s) orally 4 times a day prn; Duration: 30 days Active Farxiga 10 mg 1 tablet orally daily PT NEEDS APPT Active Trulicity 3 MG/0.5ML 0.5 mL Subcutaneous once a week Active Problems Problem Type SNOMED Code ICD Code Onset Dates Problem Status W/U Status Risk Notes Problem Essential hypertension (77386578) Essential hypertension (I10) Active confirmed Problem Plantar wart (97270652) Plantar wart (B07.0) Active confirmed Problem Irritable bowel syndrome with diarrhea (124646719) Irritable bowel syndrome with diarrhea (K58.0) Active confirmed Problem Gastroesophageal reflux disease without esophagitis (942867480) Gastroesophageal reflux disease without esophagitis (K21.9) Active confirmed Problem Hyperlipidaemia (63059057) Hyperlipidemia, unspecified hyperlipidemia type (E78.5) Active confirmed Problem Type II diabetes mellitus without complication (755047040) Type 2 diabetes mellitus without complication, without long-term current use of insulin (E11.9) Active confirmed Vital Signs Heart Rate 79 /min 12/21/2024 Blood pressure diastolic 80 mm Hg 12/21/2024 Height 73.50 in 12/21/2024 Blood pressure systolic 133 mm Hg 12/21/2024 Weight 299.6 lbs 12/21/2024 BMI 38.99 kg/m2 12/21/2024 Encounters Encounter Location Date Provider Diagnosis [facility] [address] [place] [phone] 04/13/2024 R Darrick Byrdfleet Acute bronchitis J20 .9 ; Essential hypertension I10 and Type 2 diabetes mellitus without complication, without long-term current use of insulin E11.9 [facility] [address] [place] [id number] 12/21/2024 R Darrick Karen Acute bronchitis J20 .9 ; Tinea cruris B35.6 ; Essential hypertension I10 and Type 2 diabetes mellitus without complication, without long-term current use of insulin E11.9 [facility] [address] [place] [phone] 05/26/2024 R Darrick Karen [facility] [address] [place] [id number] 05/11/2024 R Darrick Karen Type 2 diabetes mellitus without complication, without long-term current use of insulin E11.9 [facility] [address] [place] [phone] 05/18/2024 R Darrick Karen Assessments Encounter Date Diagnosis (ICD Code) Assessment Notes Treatment Notes Treatment Clinical Notes Section Notes 04/13/2024 Acute bronchitis (ICD-10 - J20.9) 04/13/2024 Essential hypertension (ICD-10 - I10) 05/11/2024 Type 2 diabetes mellitus without complication, without long-term current use of insulin (ICD-10 - E11.9) 12/21/2024 Acute bronchitis (ICD-10 - J20.9) 12/21/2024 Tinea cruris (ICD-10 - B35.6) 12/21/2024 Essential hypertension (ICD-10 - I10) 04/13/2024 Type 2 diabetes mellitus without complication, without long-term current use of insulin (ICD-10 - E11.9) 12/21/2024 Type 2 diabetes mellitus without complication, without long-term current use of insulin (ICD-10 - E11.9) Plan Of Treatment Pending Test Test Name Order Date H-Lipid Panel 12/21/2024 H-CMP 12/21/2024 H-Glycohemoglobin A1C 12/21/2024 H-PSA 10/29/2021 H-PSA 12/21/2024 Insurance Providers Payer Name Payer Address Payer Phone Subscriber Number Group Number Insured Name Patient Relationship to Insured Coverage Start Date Coverage End Date [facility] [address] [place] [address] [id number] Brandon Arshad JR Self - patient is the insured Medical (General) History Medical History History ICD Code type 2 diabetes Hypertension Surgical History Surgery Date(Month/Year) appendectomy tonsillectomy adenoidectomy vasectomy Gallbladder Colonoscopy Hospitalization History Reason Date(Month/Year) Breathing Problems- [facility] 1973 Typhoid Fever- [facility] 1979
[2024-12-25 10:47] LABS: Hemoglobin A1C 8.7 % (4.0-6.0)
[2024-12-25 10:50] LABS: Chloride 106 mmol/L (98-107); Potassium 4.5 mmoL/L (3.5-5.1); Sodium 139 mmol/L (136-145)
[2024-12-25 10:52] LABS: Alanine Aminotransferase 42 U/L (12-78); Blood Urea Nitrogen 15 mg/dl (9-20); Creatinine,Serum 0.90 mg/dl (0.66-1.25); Estimated Glomerular Filt Rate 88 ml/min (>60); GFR (African American) 107 ML/MIN (>60)
[2024-12-25 10:53] LABS: Alkaline Phosphatase 102 U/L (38-126); Aspartate Amino Transferase 34 U/L (17-59); Bilirubin,Total 1.0 mg/dl (0.2-1.3); Calcium 9.3 mg/dl (8.4-10.2); Cholesterol 190 mg/dl (140-200); Glucose 160 mg/dl (74-100); Total Protein,Serum 7.2 g/dl (6.3-8.2); Triglycerides 163 mg/dl (30-150)
[2024-12-25 10:56] LABS: Anion Gap 12.5 mEq/L (5-15); Carbon Dioxide 25 mmol/L (22.0-30.0)
[2024-12-25 15:12] LABS: Albumin Level 4.4 g/dl (3.5-5.0); Albumin/Globulin Ratio 1.6 (1.1-1.8); Globulin 2.8 g/dL (1.3-3.2); HDL Cholesterol 42 mg/dl (40-60)
== END 2024-12-25 23:59 | disposition home or self-care (01) ==
LOC: LAB 09:38
PROVIDERS: PCP Family Medicine; Visit Provider Family Medicine
DX: E78.5 Hyperlipidemia, unspecified (principal); E11.9 Type 2 diabetes mellitus without complications; Z12.5 Encounter for screening for malignant neoplasm of prostate
CPT/HCPCS: 36415; 80053; 80061; 83036; G0103